=== PATIENT | female | born 1930 | race Caucasian/White ===

== ENCOUNTER 2016-09-04 09:18 | Inpatient (IN) ==
[2016-09-04 10:57] LABS: Apearance,Urine CLOUDY (Clear); Bacteria,Urine Few /HPF (Few); Bilirubin,Urine Negative (Negative); Blood, Urine Negative (Negative); Glucose,Urine (UA) Negative (Negative); Ketones,Urine Negative (Negative); Nitrite,Urine Negative (Negative); Protein,Urine 30 MG/DL; RBC,Urine 6 /HPF (0-4); Urine Color Yellow (Yellow); Urine Specific Gravity 1.015 (1.001-1.035); Urine Urobilinogen < 2.0 EU/DL (0.2-1.0); WBC,Urine 545 /HPF (0-6)
--- NOTE | 2016-09-04 11:08 | CT Report ---
History: Persistent left hip pain. Fall Date: 09/04/2016 Study: CT left hip without contrast Comparison exam: Left hip x-ray August 22, [address] sections were obtained through the left hip without IV contrast. Multiplanar reconstruction images are also evaluated. This CT exam was performed using one or more the following dose reduction techniques: Automated exposure control, adjustment of the MA and/or KV according to patient size, or use of iterative reconstruction technique. There is no fracture, dislocation, or focal destructive osseous abnormality. There is moderate osteophyte formation and joint space narrowing of the left hip. In the partially visualized pelvis, there is diverticulosis without findings of diverticulitis. Impression: No acute hip fracture. Osteoarthritis left hip. Diverticulosis PROCEDURE INTERPRETED AT [facility] DEPARTMENT OF RADIOLOGY Final Report Signed by: Dr. Teena Patrick
--- NOTE | 2016-09-04 11:16 | Emergency Department Note ---
Sam Delgadillo [place], am scribing for, and in the presence of, Kings Nowak MD 10:56. She Delgadillo Charles R, MD, personally performed the services described in this documentation, ascribed by Kathleen Vargas in my presence, and it is both accurate and complete . Arrival - Arrival Chief Complaint: Extremity Problem Stated Complaint: s/p fall with hip pain ED Nursing Triage Note: Patient reports frequent falls times five weeks. She reports falling last Wednesday and Wednesday and being evaluated in the ER. She reports falling this morning r/t left hip pain. She reports sharp, shooting, stabbing pain to her let hip. She denies hitting her head during fall. She denies chest pain, shortness of breath, or dizziness prior to the fall. Mode of Arrival: Stretcher Limitations: No Limitations Source: Patient Time Seen by Provider: 09/04/16 10:21 - History of Present Illness HPI Narrative: Pt is a 82 y/o white female presenting to the ED s/p fall that onset this morning. Pt states she also fell one week ago on Satuday and this is her second ER visit for the pain she is experiencing in her left hip. Pt denies hitting her head. There is ecchymosis present to left hip. She states Xray were benign the last time she was here. Pt admits to working in the yard and states she has been falling more than usual. Pt does have a walker but does not use it because it is too big for her home. She states she has numbness in her toes and can not bear weight on her left leg but denies fever, chills, nausea, vomiting, diarrhea , pedal edema, abdominal pain, and dysuria. Pt lives with her daughter. Her PCP is Dr. Escalante. She is currently taking Plavix. Her PMHx is consistent with CHF, TIA, HTN, diabetes, COPD, and renal sufficiency. Consistency: constant Severity: moderate Allergies/Adverse Reactions: Allergies Allergy/AdvReac Type Severity Reaction Status Date / Time codeine Allergy ANAPHYLAXIS Verified 08/22/16 15:36 Home Medications: Home Medications Medication Instructions Recorded Confirmed Type Clopidogrel [Plavix] 75 mg PO QAM 03/12/16 09/04/16 History Donepezil HCl [Donepezil HCl] 5 mg PO BEDTIME 08/23/16 09/04/16 History Gabapentin [Gabapentin] 400 mg PO BID 08/23/16 09/04/16 History Levothyroxine Sodium 88 mcg PO QAM 08/23/16 09/04/16 History [Levothyroxine Sodium] Potassium Chloride 10 meq PO DAILY 08/23/16 09/04/16 History Pravastatin Sodium [Pravastatin 20 mg PO BEDTIME 08/23/16 09/04/16 History Sodium] glipiZIDE [Glipizide] 5 mg PO BID 08/23/16 09/04/16 History traMADol TAB [Ultram] 50 mg PO Q12H PRN #20 tablet 08/23/16 09/04/16 Rx Cyclobenzaprine HCl 5 mg PO TID PRN 09/04/16 09/04/16 History Gabapentin [Gabapentin] 100 mg PO BID 09/04/16 09/04/16 History Review of System - Review of System 12 point system: reviewed and no additional remarkable complaints except as stated - Review of System Constitutional: Absent: chills, fever, weakness Eyes: Absent: vision change Head/Ears/Nose/Throat: Absent: nasal drainage Respiratory: Absent: cough, wheezing Cardiovascular: Absent: chest pain, dyspnea on exertion Gastrointestinal: Absent: abdominal pain, nausea, vomiting, diarrhea Genitourinary female: Absent: dysuria Musculoskeletal: Present: lower back pain, leg pain (left hip pain with ecchymosis s/p fall ). Absent: arm pain, back pain Skin: Absent: rash Neurological: Present: numbness (in toes of left foot ). Absent: headache, weakness, confusion, vertigo Psychiatric: Absent: anxiety Endocrine: Absent: fatigue Hematological/Lymphatic: Absent: easy bleeding Allergic/Immunologic: Absent: facial swelling Medical,Surgical,& Family Hx - Medical History Cardio: History of: CHF (year 2000), CAD, Hypertension, ID (year 2000), Pacemaker (reveal monitor), Cardiovascular Problems (carotid blockage) Neurology: History of: TIA (september) Endocrine: History of: Diabetes Mellitus (NIDDM), Dyslipidemia Rheumatology: History of;: Rheumatoid Arthritis Respiratory: History of: COPD, Pneumonia (in years 2013 and 2014) Renal: History of: Renal Problems (renal sufficiency in 2011) Gastrointestinal: History of: GI Problems (diarrhea) Musculoskeletal: History of: Musculoskeletal Problems (osteoarthritis) - Surgical History Cardiac Surgeries: Sugical HX of: Cardiac Catheterization (2000), Carotid Endarterectomy (1997) HEENT Surgeries: Surgical HX of: Carotid Endarterectomy (1997), Tonsilectomy & Adenoidectomy Abdominal Surgeries: Surgical HX of: Appendectomy (1967) Reproductive Surgeries: Surgical HX of;: Hysterectomy (1967) - Family History Family History: Reports;: Family Cancer (1 sibling from brain cancer), Family Heart Disease (6 siblings of heart attack), Family Hypertension ( father) - Social History Smoking Status: Former smoker Frequency of Alcohol Use: None Type of Drug Use: None Exam Vital Signs: Vital Signs Temperature 97.6 F 09/04/16 09:20 Pulse Rate 74 09/04/16 09:20 Respiratory Rate 16 09/04/16 09:20 Blood Pressure 189/81 09/04/16 09:20 O2 Sat by Pulse Oximetry 96 09/04/16 09:20 - General General appearance: alert, in no apparent distress - Head Head exam: Present: atraumatic, normocephalic, normal inspection - Eye Eye exam: Present: normal appearance, PERRL, EOMI - ENT ENT exam: Present: normal exam, normal oropharynx, mucous membranes moist, TM's normal bilaterally, normal external ear exam - Neck Neck exam: Present: normal inspection, full ROM, trachea midline. Absent: tenderness - Chest Chest inspection: Present: normal inspection, symmetric chest wall rise. Absent : tenderness - Respiratory Respiratory exam: Present: normal lung sounds bilaterally - Cardiovascular Cardiovascular exam: Present: regular rate, normal rhythm, normal heart sounds - Abdominal Exam Abdominal exam: Present: soft, normal bowel sounds. Absent: distention, tenderness - Extremities Exam Extremities exam: Present: full ROM, tenderness (left hip ), normal capillary refill. Absent: normal inspection, pedal edema, calf tenderness - Back Exam Back exam: Present: normal inspection, full ROM, tenderness (lower back ), other (pain over sciatic nerve left side ) - Neurological Exam Neurological exam: Present: alert, oriented X3, CN II-XII intact, normal gait, reflexes normal - Psychiatric Psychiatric exam: Present: normal affect, normal mood - Skin Skin exam: Present: warm, dry, intact, normal color, other (ecchymosis to left hip s/p fall last Wednesday). Absent: rash, diaphoresis Course - Consultations Consultation #1: Hospitalist will admit patient Time: 12:14 Results - Labs CBC & BMP: 09/04/16 10:44 Lab Results: I have reviewed the patients labs - Diagnostic Findings Procedure: Chest x-ray: report reviewed by me (COPD with chronic scarring; left loop recorder. ), CT: report reviewed by me (left hip; no acute fracture ), X- ray: report reviewed by me (lumbar spine; osteopenia. Degenerative disease. Grade 1 spondylolisthesis L2-L3) Disposition Clinical Impression: Back pain, Falls frequently, UTI (urinary tract infection), Contusion of left hip, Unsteady gait Case discussed with: patient Disposition: Still a Patient Condition: Stable Time of Disposition: 11:51
[2016-09-04] MEDS ORDERED: cefTRIAXone 1,000 MG in SODIUM CHLORIDE 0.9% 100 ML IV STA (11:20)
--- NOTE | 2016-09-04 11:21 | XRay Report ---
Portable chest Date: 09/04/2016 Clinical history: Shortness of breath Comparison: 04/24/2014 Technique: Portable AP sitting chest Findings: The heart is borderline in size with calcification in the wall of the tortuous aorta. Stable left loop recorder. Button artifact noted. Chronic scarring in the lungs with calcified granulomata/nodes. Osteopenia with degenerative changes. 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 Impression: COPD with chronic scarring. Left loop recorder. PROCEDURE INTERPRETED AT [facility] DEPARTMENT OF RADIOLOGY Final Report Signed by: Dr. Carin Edmonds
--- NOTE | 2016-09-04 11:22 | XRay Report ---
History: Lower back pain Date: 09/04/2016 Study: Lumbar spine AP and lateral 3 views Comparison exam: No previous There is mild dextroscoliosis of the lumbar spine centered at the L3 level. There is grade 1 retrolisthesis of L2 with respect to L3, likely chronic. There is moderate degenerative disc narrowing at L2-L3 and L3-L4. There is scattered mild to moderate lumbar spondylosis. There is moderate facet hypertrophy in the mid to lower lumbar spine. There is osteopenia. There is no focal lytic or blastic lesion. There is no aneurysm of the moderately calcified aorta. Impression: Osteopenia. Degenerative disease. Grade 1 spondylolisthesis L2-L3 PROCEDURE INTERPRETED AT [facility] DEPARTMENT OF RADIOLOGY Final Report Signed by: Dr. Teena Patrick
[2016-09-04] MEDS ORDERED: cefTRIAXone 1,000 MG VIAL ONE (11:29)
[2016-09-04 11:43] LABS: Basophils # 0.1 10*3/uL (0.0-0.2); Eosinophils # 0.2 10*3/uL (0.0-0.87); Eosinophils % 3.1 % (0.00-10.9); Hematocrit 39.5 VOL% (35.7-47.0); Immature Granulocytes % 0.2 %; Immature Granulocytes Absolute 0.01 #; Lymphocytes # 1.5 10*3/uL (1.4-4.0); Lymphocytes % 24.8 % (21.3-54.2); Mean Corpuscular HGB Conc 32.9 GM/DL (32-36); Mean Corpuscular Hemoglobin 29 PG (27-34); Mean Platelet Volume 9.7 FL (9.6-12.0); Monocytes # 0.6 10*3/uL (0.11-0.8); Monocytes % 9.3 % (1.7-12.7); Neutrophils # 3.8 10*3/uL (1.4-7.4); Neutrophils % 61.6 % (38.7-73.9); Platelet Count 167 T/CUMM (130-400); Red Blood Count 4.44 MC/CUMM (3.8-5.5); Red Cell Distribution Width 14.5 % (9.3-17.3); White Blood Count 6.1 T/CUMM (4-12)
[2016-09-04 12:12] LABS: Alanine Aminotransferase 9 U/L (13-56); Alkaline Phosphatase 77 U/L (45-117); Aspartate Amino Transferase 15 U/L (0-37); Bilirubin,Total < 0.39 MG/DL (0.2-1.0); Blood Urea Nitrogen 28 MG/DL (7-18); Calcium 8.4 MG/DL (8.5-10.1); Glucose 51 MG/DL (74-106); Potassium 4.2 MMOL/L (3.5-5.1); Sodium 143 MMOL/L (136-145); Total Protein 5.3 G/DL (6.4-8.3)
[2016-09-04] MEDS ORDERED: fentaNYL 100 MCG/2 ML VIAL IV STA (13:21)
[2016-09-04] MEDS ORDERED: fentaNYL 100 MCG/2 ML VIAL ONE (13:24)
--- NOTE | 2016-09-04 13:40 | Hospitalist History & Physical ---
Assessment and Plan (1) Non-insulin dependent type 2 diabetes mellitus Status: Chronic Assessment and plan: Blood glucose 51 at the time of admission; will start accuchecks with coverage. Will obtain HGA1C. Current Visit: No (2) Recurrent falls Status: Acute Assessment and plan: CT hip (-) for fracture.Patient reports pain upon minimal weight bearing. Will consult PT to evaluate; if no improvement may order MRI of left leg. The patient has had multiple falls recently; although she denies loss of consciouness or injury to her head; she takes Plavix; will obtain CT head for good measures. Current Visit: Yes (3) Urinary tract infection Status: Acute Assessment and plan: Continue empiric antibiotics and await urine culture results. Current Visit: Yes Qualifiers: Urinary tract infection type: site unspecified Hematuria presence: without hematuria Qualified Code(s): N39.0 - Urinary tract infection, site not specified History of Present Illness Chief complaint: Fall with left hip pain/UTI History of present illness: This is a very pleasant 85 year old female that presented to the ED at [facility] for evaluation of left hip pain secondary to a ground level fall on this morning. The patient has a rather impressive medical history significant for congestive heart failure, transient ischemic attack, diabetes mellitus, chronic obstructive pulmonary disease and renal insufficiency. The patient reports multiple falls in recent weeks including one that occurred on Wednesday in which see was evaluated for in the ED here. She denies loss of consciousness during the current and previous episodes. The patient was told that she did not have a fracture, given prescriptions, and discharged home; however the left hip pain failed to improve.In addition, the patient reported numbness to her left toes. She reports that the pain has become virtually impossible to bear which prompted her to present to the ED for evaluation. Labs were obtained at the time of arrival which reported hypoglycemia with a glucose level of 51, calcium of 8.4, ALT of 9, BUN of 28, and creatinine of 1.70. Radiograph of the lumbar spine suggests osteopenia, degenerative disease, and grade 1 [address]ondylolisthesis L2-L3. CT left hip negative for fracture. After discussion with both Dr. Nowak and Dr. Hernández, the patient will be admitted to the hospitalist service for continuation of care. Home Medications Medication Instructions Recorded Confirmed Type Clopidogrel [Plavix] 75 mg PO QAM 03/12/16 09/04/16 History Donepezil HCl [Donepezil HCl] 5 mg PO BEDTIME 08/23/16 09/04/16 History Gabapentin [Gabapentin] 400 mg PO BID 08/23/16 09/04/16 History Levothyroxine Sodium 88 mcg PO QAM 08/23/16 09/04/16 History [Levothyroxine Sodium] Potassium Chloride 10 meq PO DAILY 08/23/16 09/04/16 History Pravastatin Sodium [Pravastatin 20 mg PO BEDTIME 08/23/16 09/04/16 History Sodium] glipiZIDE [Glipizide] 5 mg PO BID 08/23/16 09/04/16 History traMADol TAB [Ultram] 50 mg PO Q12H PRN #20 tablet 08/23/16 09/04/16 Rx Cyclobenzaprine HCl 5 mg PO TID PRN 09/04/16 09/04/16 History Gabapentin [Gabapentin] 100 mg PO BID 09/04/16 09/04/16 History Allergies Allergy/AdvReac Type Severity Reaction Status Date / Time codeine Allergy ANAPHYLAXIS Verified 08/22/16 15:36 Medical,Surgical,& Family Hx - Medical History Cardio: History of: CHF (2000), CAD, Hypertension, [place] (2000), Pacemaker (reveal monitor), Cardiovascular Problems (carotid blockage) Neurology: History of: TIA (september) Endocrine: History of: Diabetes Mellitus (NIDDM), Dyslipidemia Rheumatology: History of;: Rheumatoid Arthritis Respiratory: History of: COPD, Pneumonia (in years 2013 and 2014) Renal: History of: Renal Problems (renal sufficiency in 2011) Gastrointestinal: History of: GI Problems (diarrhea) Musculoskeletal: History of: Musculoskeletal Problems (osteoarthritis) - Surgical History Cardiac Surgeries: Sugical HX of: Cardiac Catheterization (2000), Carotid Endarterectomy (1997) HEENT Surgeries: Surgical HX of: Carotid Endarterectomy (1997), Tonsilectomy & Adenoidectomy Abdominal Surgeries: Surgical HX of: Appendectomy (1967) Reproductive Surgeries: Surgical HX of;: Hysterectomy (1967) - Family History Family History: Reports;: Family Cancer (1 sibling from brain cancer), Family Heart Disease (6 siblings of heart attack), Family Hypertension ( father) - Social History Smoking Status: Former smoker Frequency of Alcohol Use: None Type of Drug Use: None 12 point system: reviewed and no additional remarkable complaints except as stated Exam - Constitutional General appearance: normal weight, mild distress - Head Head exam: Present: normocephalic, atraumatic - Eye Eye exam: Present: EOMI, conjunctival injection Pupils: Present: JAROD, normal accommodation. Absent: constricted - ENT ENT exam: Present: normal exam, normal external ear exam, normal oropharynx - Neck Neck exam: Present: normal inspection. Absent: lymphadenopathy, meningismus, tenderness, thyromegaly - Respiratory Respiratory exam: Present: clear to auscultation bilaterally. Absent: rales, rhonchi, stridor, wheezes - Cardiovascular Cardiovascular exam: Present: regular rate and rhythm. Absent: carotid bruit, diastolic murmur, gallop, JVD, rubs, tachycardia - GI/Abdominal GI/Abdominal exam: Present: normal bowel sounds, soft. Absent: firm, guarding - Extremities Exam Extremities exam: Present: other (left leg pain upon gentle manipulation; eccyhmosis) - Back Exam Back exam: Present: CVA tenderness (L), CVA tenderness (R) - Neurological Exam Neurological exam: Present: alert, oriented X3, CN II-XII intact - Psychiatric Psychiatric exam: Present: normal affect, normal mood - Skin Skin exam: Present: normal color, warm, dry Results - Labs CBC & BMP: 09/04/16 10:44 09/04/16 10:44 Lab Results: I have reviewed the past 24 hour labs Quality Measures - VTE Deep Vein Thrombosis/Pulmonary Embolism Present on Admission: No
--- NOTE | 2016-09-04 15:13 | CT Report ---
CT head/brain wo con Indication: Head injury status post fall Comparison: CT head 03/12/2016 Technique: CT of the brain was performed without administration of intravenous contrast. The CT examination was performed using one or more of the following dose reduction techniques: Automatic exposure control, adjustment of the mA and kV according to patient size, use of acute or iterative reconstruction techniques. Findings: There is no evidence of acute intracranial mass, hemorrhage, or infarction. Generalized cerebral atrophy is present. Areas of decreased attenuation within the periventricular white matter and cerebral white matter are present which could be compatible with microvascular ischemia. The basal cisterns are patent. No significant abnormality is demonstrated to involve the posterior fossa or cerebellum. Orbits and globes demonstrate no evidence of significant pathology. The paranasal sinuses are clear. No significant abnormality is demonstrated to involve the mastoid air cells. The calvarium and overlying soft tissues demonstrate no evidence of acute pathology. Impression: 1. No CT evidence of acute intracranial pathology. Generalized atrophy and findings compatible with microvascular ischemia are present. 09/04/2016 3:09 PM PROCEDURE INTERPRETED AT [facility] DEPARTMENT OF RADIOLOGY Final Report Signed by: Dr. Leon Smith
[2016-09-04] MEDS ORDERED: LEVOFLOXACIN INJ 500 MG in PREMIX 1 EACH IV ONE (16:00)
[2016-09-04] MEDS ORDERED: DEXTROSE 50% 25 GM/50 ML VIAL IV PRN (16:37)
[2016-09-04] MEDS ORDERED: GLUCAGON 1 MG VIAL IM PRN (16:37)
--- NOTE | 2016-09-04 16:48 | Magnetic Resonance Report ---
MR femur LT wo con Indication: Left leg pain. Comparison: CT of the left hip 09/04/2016. Technique: Using a 1.5 Veronica magnet, multisequence multiplanar MR imaging of the left femur was performed without administration of intravenous contrast. Findings: The large field of view utilized on the coronal inversion recovery sequence degrades anatomic detail of the femoral acetabular joints. Trace amount of fluid may be present bilaterally within the femoral acetabular joints. There is no evidence of bone marrow edema involving the femurs or visualized pelvis. No muscular edema is suggested within the left or right thigh. The adipose layer and dermal surface demonstrate no significant abnormalities. Impression: 1. No findings are present to suggest etiology of left leg pain. 09/04/2016 4:43 PM PROCEDURE INTERPRETED AT [facility] DEPARTMENT OF RADIOLOGY Final Report Signed by: Dr. Leon Smith
[2016-09-04] MEDS ORDERED: traMADol 50 MG TABLET PO PRN (20:33)
[2016-09-04] MEDS: CYCLOBENZAPRINE 10 MG TABLET PO PRN (21:09)
[2016-09-05] MEDS: CYCLOBENZAPRINE 10 MG TABLET PO PRN ×2 (01:50→08:20)
[2016-09-05] MEDS: ACETAMINOPHEN 500 MG TABLET PO SCH ×4 (03:48→21:07)
[2016-09-05] MEDS: oxyCODONE IR 5 MG TABLET PO PRN ×4 (03:48→21:07)
[2016-09-05 04:57] LABS: Basophils # 0.1 10*3/uL (0.0-0.2); Basophils % 0.8 % (0.0-0.8); Eosinophils # 0.3 10*3/uL (0.0-0.87); Eosinophils % 3.9 % (0.00-10.9); Hematocrit 37.8 VOL% (35.7-47.0); Hemoglobin 12.5 GM/DL (12.0-16.0); Immature Granulocytes % 0.4 %; Immature Granulocytes Absolute 0.03 #; Lymphocytes # 1.4 10*3/uL (1.4-4.0); Mean Corpuscular HGB Conc 33.1 GM/DL (32-36); Mean Corpuscular Hemoglobin 29 PG (27-34); Mean Corpuscular Volume 88.3 FL (87-102); Mean Platelet Volume 10.5 FL (9.6-12.0); Monocytes # 0.7 10*3/uL (0.11-0.8); Monocytes % 9.8 % (1.7-12.7); Neutrophils # 4.9 10*3/uL (1.4-7.4); Neutrophils % 66.1 % (38.7-73.9); Platelet Count 183 T/CUMM (130-400); Red Blood Count 4.28 MC/CUMM (3.8-5.5); Red Cell Distribution Width 14.5 % (9.3-17.3); White Blood Count 7.4 T/CUMM (4-12)
[2016-09-05 05:37] LABS: Albumin 2.8 G/DL (3.4-5.0); Bilirubin,Total 0.7 MG/DL (0.2-1.0); Calcium 8.4 MG/DL (8.5-10.1); Magnesium 1.6 MG/DL (1.8-2.4); Osmolality,Calculated 283.3 MOS/KG (273-304); Phosphorous 2.5 MG/DL (2.5-4.9); Potassium 4.4 MMOL/L (3.5-5.1); Total Protein 5.1 G/DL (6.4-8.3)
[2016-09-05] MEDS: INSULIN LISPRO 100 UNIT/ML SUBCUT SCH ×4 (08:19→22:29)
--- NOTE | 2016-09-05 11:49 | Hospitalist Progress Note ---
Assessment and Plan (1) Recurrent falls Status: Acute Assessment and plan: This is subjectively reported to me. Of note weakness and the. Patient does not have any bruises on her body at this time. Because of this complaint of the pain in the left hip and unsteady, I will consult PT and OT gait training Current Visit: Yes (2) Urinary tract infection Status: Acute Assessment and plan: Reported as 100,000 colony-forming units of gram-negative Road antibiogram is pending. Continue antibiotic Current Visit: Yes Qualifiers: Urinary tract infection type: site unspecified Hematuria presence: without hematuria Qualified Code(s): N39.0 - Urinary tract infection, site not specified (3) Unsteady gait Status: Acute Assessment and plan: Consult PT OT. MRI of the left hip is negative for any pathology. Objective recommendation for physical therapy will determine disposition. Current Visit: Yes Hospitalist: Subjective Interval history: Patient has been seen interviewed and examined and chart has been reviewed. Admitted yesterday to the hospital with what was timed urinary tract infection. I have reviewed the urine there is no suggestion of inflammation on the urine but culture of this urine is reporting greater than 100,000 colony-forming unit with gram-negative fang. She is also complaining of left hip pain which she has done so for multiple times coming to the emergency room. In the notes she claims that primary care physician gives her steroid injections in the area of the sciatic nerve. Wee ended up doing an MRI of the hip area with no pathology found in the area of concern. Today she still complains of this pain when asked to stand up by side of the bed. was going down to the ground as I was supporting her. Whether this is real or not it is not clear to me. She lives at home alone and she complains of having had multiple falls at home because of this. Patient will therefore be referred to occupational therapy and physical therapy while here and get case management involved for possibility of sending her to swing bed for more PT OT if needed. Did mention possibility of a nursing home facility and she does not want to go to nursing home facility. Exam - Constitutional Vitals: Period Temp Pulse Resp BP Sys/Julian Pulse Ox Last 24 Hr 97.9 F-98.7 F 76-98 18-20 140-198/74-104 93-96 General appearance: normal weight - Head Head exam: Present: normal inspection, normocephalic, atraumatic - Eye Eye exam: Present: EOMI, other (Anicteric sclera no conjunctival petechia) Pupils: Present: JAROD - ENT ENT exam: Present: normal exam, normal oropharynx - Neck Neck exam: Present: normal inspection, other (Supple neck no JVD no bruits midline trachea) - Respiratory Respiratory exam: Present: clear to auscultation bilaterally - Cardiovascular Cardiovascular exam: Present: regular rate and rhythm - GI/Abdominal GI/Abdominal exam: Present: normal bowel sounds, soft - Extremities Exam Extremities exam: Present: normal inspection, normal capillary refill, other ( When I examined directly left hip by abduction and adduction could not reproduce the pain at the left hip but complained that the pain was at the knee front but around the patella) - Back Exam Back exam: Present: other (Complains of left gluteal pain and then claims the pain is in the knee) - Neurological Exam Neurological exam: Present: alert, oriented X3, CN II-XII intact - Psychiatric Psychiatric exam: Present: anxious, other (Anxious looking slightly hard of hearing) - Skin Skin exam: Present: normal color, warm, dry Results - Labs CBC & BMP: 09/05/16 03:28 09/05/16 03:28 Lab Results: I have reviewed the past 24 hour labs Quality Measures - VTE Deep Vein Thrombosis/Pulmonary Embolism Present on Admission: No
[2016-09-05] MEDS: LEVOFLOXACIN INJ 250 MG in PREMIX 1 EACH IV SCH (16:23)
[2016-09-06 06:20] LABS: Basophils # 0.1 10*3/uL (0.0-0.2); Basophils % 0.9 % (0.0-0.8); Eosinophils # 0.4 10*3/uL (0.0-0.87); Eosinophils % 5.2 % (0.00-10.9); Hematocrit 39.7 VOL% (35.7-47.0); Hemoglobin 13.2 GM/DL (12.0-16.0); Immature Granulocytes % 0.3 %; Immature Granulocytes Absolute 0.02 #; Lymphocytes % 26.4 % (21.3-54.2); Mean Corpuscular HGB Conc 33.2 GM/DL (32-36); Mean Corpuscular Hemoglobin 29 PG (27-34); Mean Corpuscular Volume 86.1 FL (87-102); Mean Platelet Volume 10.1 FL (9.6-12.0); Monocytes # 0.6 10*3/uL (0.11-0.8); Monocytes % 8.1 % (1.7-12.7); Neutrophils # 4.4 10*3/uL (1.4-7.4); Neutrophils % 59.1 % (38.7-73.9); Platelet Count 208 T/CUMM (130-400); Red Blood Count 4.61 MC/CUMM (3.8-5.5); Red Cell Distribution Width 14.4 % (9.3-17.3); White Blood Count 7.4 T/CUMM (4-12)
[2016-09-06] MEDS: ACETAMINOPHEN 500 MG TABLET PO SCH ×3 (06:21→21:18)
[2016-09-06] MEDS: oxyCODONE IR 5 MG TABLET PO PRN ×3 (06:21→22:28)
[2016-09-06 06:53] LABS: Bilirubin,Total 0.7 MG/DL (0.2-1.0); Calcium 9.3 MG/DL (8.5-10.1); Magnesium 1.7 MG/DL (1.8-2.4); Osmolality,Calculated 280.5 MOS/KG (273-304); Potassium 4.5 MMOL/L (3.5-5.1); Total Protein 5.4 G/DL (6.4-8.3)
[2016-09-06] MEDS ORDERED: CYCLOBENZAPRINE 10 MG TABLET PO PRN (10:20)
--- NOTE | 2016-09-06 10:50 | Hospitalist Progress Note ---
Assessment and Plan (1) Recurrent falls Status: Acute Assessment and plan: This is subjectively reported to me. Of note weakness and the. Patient does not have any bruises on her body at this time. Because of this complaint of the pain in the left hip and unsteady, I will consult PT and OT gait training also obtain an MRI of the lumbar spine. Current Visit: Yes (2) Urinary tract infection Status: Acute Assessment and plan: Reported as 100,000 colony-forming units of gram-negative Road antibiogram is pending. Continue antibiotic. Current Visit: Yes Qualifiers: Urinary tract infection type: site unspecified Hematuria presence: without hematuria Qualified Code(s): N39.0 - Urinary tract infection, site not specified (3) Unsteady gait Status: Acute Assessment and plan: Consult PT OT. MRI of the left hip is negative for any pathology. Objective recommendation for physical therapy will determine disposition. Current Visit: Yes Hospitalist: Subjective Interval history: Patient has been seen interviewed and examined and chart has been reviewed. She says she feels a little better today no complaints of pain in the leg. She still cannot weight bear as comfortably as functional. Therefore still needs PT OT and possibly swing bed before she goes home. Refer to physical therapy and Occupational Therapy done. All medications have been reviewed and reconciled with the medication profile in the hospital. We will withhold cyclobenzaprine. Patient is taking tramadol which was also been used at home combination of the 2 can be disastrous in terms of drug interactions. Exam - Constitutional Vitals: Period Temp Pulse Resp BP Sys/Julian Pulse Ox Last 24 Hr 97.6 F-98.9 F 76-88 16-20 151-182/74-93 94-97 General appearance: normal weight - Head Head exam: Present: normal inspection, normocephalic, atraumatic - Eye Eye exam: Present: EOMI Pupils: Present: JAROD - ENT ENT exam: Present: normal exam - Neck Neck exam: Present: normal inspection - Respiratory Respiratory exam: Present: clear to auscultation bilaterally - Cardiovascular Cardiovascular exam: Present: irregular rhythm, other (Rate controlled) - GI/Abdominal GI/Abdominal exam: Present: normal bowel sounds, soft - Extremities Exam Extremities exam: Present: other (Limitation of movement at the left hip but much less pain. She is complaining of numbness on the lateral aspect of the leg. MRI of the hip was nondiagnostic. Should do a lumbosacral MRI.) - Back Exam Back exam: Present: other (Noted reproducing any pain at the lumbar spine palpation. Patient does have a long-standing history of radicular pain in the same dermatomes as L3-4. On the left side.) - Neurological Exam Neurological exam: Present: alert, oriented X3, CN II-XII intact - Psychiatric Psychiatric exam: Present: normal affect, normal mood - Skin Skin exam: Present: normal color, warm, dry Results - Labs CBC & BMP: 09/06/16 05:57 09/06/16 05:57 Lab Results: I have reviewed the past 24 hour labs Quality Measures - VTE Deep Vein Thrombosis/Pulmonary Embolism Present on Admission: No
[2016-09-06] MEDS: INSULIN LISPRO 100 UNIT/ML SUBCUT SCH ×3 (15:37→21:19)
[2016-09-06] MEDS: LEVOFLOXACIN INJ 250 MG in PREMIX 1 EACH IV SCH (16:16)
--- NOTE | 2016-09-06 17:25 | Event Note ---
called by nursing to evaluate pts hypertension. pts BP has been elevated since admission. this could have been due to pain but this is controlled. will try a low dose of norvasc to see if this helps and see if she tolerates. discussed w dr hendrix covering for dr thomas.
[2016-09-06] MEDS ORDERED: DONEPEZIL 5 MG TABLET PO SCH (21:00)
[2016-09-06] MEDS ORDERED: PRAVASTATIN 20 MG TABLET PO SCH (21:00)
[2016-09-06] MEDS: glipiZIDE 5 MG TABLET PO SCH (21:18)
[2016-09-06] MEDS: GABAPENTIN 100 MG CAPSULE PO SCH (21:18)
[2016-09-07] MEDS: oxyCODONE IR 5 MG TABLET PO PRN (04:35)
[2016-09-07] MEDS: ACETAMINOPHEN 500 MG TABLET PO SCH (06:30)
[2016-09-07] MEDS ORDERED: LEVOTHYROXINE 88 MCG TABLET PO SCH (09:00)
[2016-09-07] MEDS ORDERED: CLOPIDOGREL 75 MG TABLET PO SCH (09:00)
[2016-09-07] MEDS ORDERED: amLODIPine 5 MG TABLET PO SCH (09:00)
[2016-09-07] MEDS: INSULIN LISPRO 100 UNIT/ML SUBCUT SCH (09:34)
[2016-09-07] MEDS: GABAPENTIN 100 MG CAPSULE PO SCH (09:36)
[2016-09-07] MEDS: glipiZIDE 5 MG TABLET PO SCH (09:36)
--- NOTE | 2016-09-07 09:36 | Discharge Summary ---
<Hansel Hernández - Last Filed: 09/07/16 09:32> Diagnosis - Discharge Diagnosis (1) Recurrent falls Status: Acute (2) Urinary tract infection Status: Acute (3) Unsteady gait Status: Acute Discharge Plan - Discharge Data Disposition: Home Health Service Condition at Discharge: Stable Discharge Diet: heart healthy Activity: increase activity as tolerated Hygiene: no restrictions Weight Bearing at Discharge: weight bear as tolerated Driving: other (Not to drive) Contact your physician if you experience:: fever over 101, Nausea/Vomiting, Shortness of breath, pain uncontrolled by pain medications - Discharge Medications New amLODIPine [Norvasc] 5 mg PO DAILY #30 tablet Continue Clopidogrel [Plavix] 75 mg PO QAM Gabapentin 400 mg PO BID Pravastatin Sodium 20 mg PO BEDTIME glipiZIDE [Glipizide] 5 mg PO BID Donepezil HCl 5 mg PO BEDTIME traMADol TAB [Ultram] 50 mg PO Q12H PRN #20 tablet PRN Reason: Pain Gabapentin 100 mg PO BID Levothyroxine Sodium 88 mcg PO QAM Cyclobenzaprine HCl 5 mg PO TID PRN PRN Reason: PAIN/TIGHTNESS Discontinued Potassium Chloride 10 meq PO DAILY - Follow Up or Referral - Forms/Instructions Exam - Constitutional Vitals: Period Temp Pulse Resp BP Sys/Julian Pulse Ox Last 24 Hr 97.7 F-98.4 F 75-93 18-20 145-189/77-93 95-99 General appearance: normal weight - Head Head exam: Present: normocephalic - Eye Eye exam: Present: EOMI Pupils: Present: JAROD - ENT ENT exam: Present: normal exam - Neck Neck exam: Present: normal inspection - Respiratory Respiratory exam: Present: clear to auscultation bilaterally - Cardiovascular Cardiovascular exam: Present: regular rate and rhythm - GI/Abdominal GI/Abdominal exam: Present: normal bowel sounds, soft - Extremities Exam Extremities exam: Present: other (Date of movement at the the left hip. Patient does have discomfort in the left inguinal area. All radiographs to this point have been negative for structural abnormalities. Patient may need a full orthopedic examination and follow-up is with physician. May even be referred to an occupational health expert.) - Back Exam Back exam: Present: normal inspection - Neurological Exam Neurological exam: Present: alert, oriented X3, CN II-XII intact - Psychiatric Psychiatric exam: Present: normal affect, normal mood - Skin Skin exam: Present: normal color, warm, dry Discharge Results Procedures and tests throughout hospitalization: Pending Orders 09/04/16 10:55 Thyroid Function Skandia, S Stat 09/07/16 10:54 MR lumbar spine wo con Routine Labs on day of discharge: Labs from last 24 hours 09/07/16 09/06/16 09/06/16 07:16 21:01 16:30 POC Glucose 75 127 H 122 H 09/06/16 11:35 POC Glucose 139 H DS: Provider Date of admission: 09/04/16 12:20 Primary care physician: . No PCP Attending physician on admission: Hansel Hernández MD Consults: 09/04/16 15:17 Consult to Dietitian [CONS] Routine Reason for Dietitian: Other 09/05/16 07:53 Consult to Physical Therapy [CONS] Routine Reason for Physical Therapy: Evaluate and Treat 09/06/16 07:45 Consult to Occupational Therapy [CONS] Routine Reason for Occupational Therapy: Evaluate and Treat 09/06/16 07:46 Consult to Case Mgmt/Social Srvs [CONS] Routine Reason for Case Mgmt/Social Srvs: Discharge Planning 09/07/16 09:22 Consult to Case Mgmt/Social Srvs [CONS] Routine Reason for Case Mgmt/Social Srvs: Home Health Consult Comment: with physical therapy 09/07/16 09:23 Consult to Physical Therapy [CONS] Routine Reason for Physical Therapy: Other Consult Comment: bring walker 09/07/16 09:24 Consult to Case Mgmt/Social Srvs [CONS] Routine Reason for Case Mgmt/Social Srvs: Equipment Consult Comment: bedside commode Discharging clinician: Hansel Hernández MD <Gia Ewing - Last Filed: 09/07/16 10:12> Hospital Course - Hospital Course Hospital Course: Ms. Villasenor is an 85 y/o with history of CHF, TIA, HTN, COPD, Renal Insifficiency and Diabetes Mellitus, that was admitted 09/04/2016 after presenting to the ER with left hip pain after falling several times at home. She was admiitted to inpatient to the Hospitalist service for Back Pain, UTI, contusion of left hip Unsteady gait and frequent falls. She has had negative Radiographic exams, as well as , MRI. She has been treated for her UTI that grew E Coli. She has been evaluated per PT/OT for possible swing bed/Snf placement. Ms. Villasenor is not interested in prison placement. She is being discharged home with home health She is being discharged home with PT/OT evaluation. She is to get an appropriate walker for her to use at home. Amolodipne has been added to her daily medication for better HTN control. Her potassium supplement was discontinued. She needs to follow up with her primary physican 1-2 weeks after discharge.
[2016-09-07 10:00] VITALS: BP 163/79
== END 2016-09-07 12:30 | disposition home health service (06) | DRG 690 ==
LOC: EDUNIT# → N.ED 09:18 → N.EDINP 12:20 → N.5E 12:43
PROVIDERS: ADMIT Internal Medicine Infectious Disease; ATTEND Internal Medicine Infectious Disease

== ENCOUNTER 2017-11-30 09:00 | Inpatient (IN) ==
[2017-11-30 10:34] LABS: Basophils # 0.1 10*3/uL (0.0-0.2); Basophils % 1.4 % (0.0-0.8); Eosinophils # 0.5 10*3/uL (0.0-0.87); Eosinophils % 7.1 % (0.00-10.9); Hematocrit 40.4 VOL% (35.7-47.0); Immature Granulocytes % 0.3 %; Immature Granulocytes Absolute 0.02 #; Lymphocytes # 1.5 10*3/uL (1.4-4.0); Lymphocytes % 22.6 % (21.3-54.2); Mean Corpuscular HGB Conc 32.2 GM/DL (32-36); Mean Corpuscular Hemoglobin 30 PG (27-34); Mean Corpuscular Volume 92.4 FL (87-102); Mean Platelet Volume 10.1 FL (9.6-12.0); Monocytes # 0.7 10*3/uL (0.11-0.8); Monocytes % 10.2 % (1.7-12.7); Neutrophils # 3.9 10*3/uL (1.4-7.4); Neutrophils % 58.4 % (38.7-73.9); Platelet Count 214 T/CUMM (130-400); Red Blood Count 4.37 MC/CUMM (3.8-5.5); Red Cell Distribution Width 14.1 % (9.3-17.3); White Blood Count 6.6 T/CUMM (4-12)
[2017-11-30 10:41] LABS: Apearance,Urine CLEAR (Clear); Bilirubin,Urine Negative (Negative); Blood, Urine Negative (Negative); Glucose,Urine (UA) Negative (Negative); Ketones,Urine Negative (Negative); Mucus,Urine Occasional /LPF (Occasional); Nitrite,Urine Negative (Negative); Protein,Urine Negative; RBC,Urine 1 /HPF (0-4); Squamous Epithelial Cell,Urine Occasional /HPF (0-10); Urine Color Yellow (Yellow); Urine Specific Gravity 1.005 (1.001-1.035); Urine Urobilinogen < 2.0 EU/DL (0.2-1.0); WBC,Urine 1 /HPF (0-6)
[2017-11-30 11:00] LABS: Alanine Aminotransferase 15 U/L (13-56); Albumin 3.3 G/DL (3.4-5.0); Alkaline Phosphatase 111 U/L (45-117); Aspartate Amino Transferase 15 U/L (0-37); Blood Urea Nitrogen 28 MG/DL (7-18); Calcium 9.1 MG/DL (8.5-10.1); Glucose 101 MG/DL (74-106); Osmolality,Calculated 286.3 MOS/KG (273-304); Potassium 4.1 MMOL/L (3.5-5.1); Sodium 141 MMOL/L (136-145); Total Protein 6.5 G/DL (6.4-8.3)
[2017-11-30] MEDS ORDERED: LABETALOL 20 MG/4 ML SYRINGE IV PRN (15:11)
[2017-11-30] MEDS ORDERED: GLUCAGON 1 MG VIAL IM PRN (15:11)
[2017-11-30] MEDS ORDERED: DEXTROSE 50% 25 GM/50 ML VIAL IV PRN (15:11)
[2017-11-30] MEDS ORDERED: ONDANSETRON 4 MG/2 ML VIAL IV PRN (15:11)
[2017-11-30] MEDS ORDERED: DOCUSATE SODIUM 100 MG CAPSULE PO PRN (15:11)
[2017-11-30] MEDS ORDERED: LACTULOSE 20 GM/30 ML UDCUP PO PRN (15:11)
[2017-11-30] MEDS ORDERED: ACETAMINOPHEN 325 MG TABLET PO PRN (15:11)
[2017-11-30] MEDS: SODIUM CHLORIDE 0.9% 1,000 ML IV SCH (16:22)
[2017-11-30 16:46] LABS: Barbiturates Screen,Urine Negative (Negative); Benzodiazepines Screen,Urine Negative (Negative); Cannabinoid Screen,Urine Negative (Negative); Opiate Screen,Urine Negative (Negative); Phencyclidine Screen,Urine Negative (Negative)
[2017-11-30] MEDS: INSULIN LISPRO 100 UNIT/ML SUBCUT SCH ×2 (16:46→20:30)
[2017-11-30] MEDS: CLOPIDOGREL 75 MG TABLET PO SCH (17:02)
[2017-11-30] MEDS: ASPIRIN 325 MG TABLET PO SCH (17:02)
[2017-11-30] MEDS ORDERED: MAGNESIUM SULF RIDER 4 GM in PREMIX 1 EACH IV PRN (19:46)
[2017-11-30] MEDS ORDERED: MAGNESIUM SULF RIDER 2 GM in PREMIX 1 EACH IV PRN (19:46)
[2017-11-30] MEDS: ATORVASTATIN 40 MG TABLET PO SCH (20:26)
[2017-12-01] MEDS: SODIUM CHLORIDE 0.9% 1,000 ML IV SCH ×3 (00:30→09:32)
[2017-12-01 05:16] LABS: Basophils # 0.1 10*3/uL (0.0-0.2); Basophils % 1.5 % (0.0-0.8); Eosinophils # 0.5 10*3/uL (0.0-0.87); Hematocrit 34.9 VOL% (35.7-47.0); Hemoglobin 11.6 GM/DL (12.0-16.0); Immature Granulocytes % 0.4 %; Immature Granulocytes Absolute 0.02 #; Lymphocytes # 1.7 10*3/uL (1.4-4.0); Mean Corpuscular HGB Conc 33.2 GM/DL (32-36); Mean Corpuscular Hemoglobin 30 PG (27-34); Mean Corpuscular Volume 89.9 FL (87-102); Mean Platelet Volume 10.5 FL (9.6-12.0); Monocytes # 0.5 10*3/uL (0.11-0.8); Monocytes % 10.2 % (1.7-12.7); Neutrophils % 41.9 % (38.7-73.9); Platelet Count 200 T/CUMM (130-400); Red Blood Count 3.88 MC/CUMM (3.8-5.5); Red Cell Distribution Width 14.1 % (9.3-17.3); White Blood Count 4.8 T/CUMM (4-12)
[2017-12-01 05:42] LABS: Band Neutrophils 2 % (0-10); Eosinophils 8 % (0-10); Hypochromasia 1+; Lymphocytes 36 % (20-55); Platelet Estimate Adequate; Segmented Neutrophils 45 % (50-85); Total Cells Counted 100
[2017-12-01 06:08] LABS: Calcium 8.3 MG/DL (8.5-10.1); Osmolality,Calculated 291.7 MOS/KG (273-304); Potassium 4.1 MMOL/L (3.5-5.1); Risk Ratio 2.93; Thyroid Stimulating Hormone 0.579 uIU/ml (0.358-3.74); VLDL CHOLESTEROL 21.6 MG/DL
[2017-12-01] MEDS: INSULIN LISPRO 100 UNIT/ML SUBCUT SCH ×4 (07:53→20:59)
[2017-12-01] MEDS ORDERED: cefTRIAXone 1,000 MG in SYRINGE 1 EACH IV SCH (09:00)
[2017-12-01] MEDS: ASPIRIN 325 MG TABLET PO SCH (09:47)
[2017-12-01] MEDS: CLOPIDOGREL 75 MG TABLET PO SCH (09:48)
[2017-12-01] MEDS: PANTOPRAZOLE 40 MG TABLET PO SCH (09:48)
[2017-12-01] MEDS: ATORVASTATIN 40 MG TABLET PO SCH (20:59)
[2017-12-02] MEDS: SODIUM CHLORIDE 0.9% 1,000 ML IV SCH (02:12)
[2017-12-02 04:42] LABS: Basophils # 0.1 10*3/uL (0.0-0.2); Basophils % 1.2 % (0.0-0.8); Eosinophils # 0.6 10*3/uL (0.0-0.87); Eosinophils % 9.8 % (0.00-10.9); Hematocrit 36.4 VOL% (35.7-47.0); Hemoglobin 12.2 GM/DL (12.0-16.0); Immature Granulocytes % 0.2 %; Immature Granulocytes Absolute 0.01 #; Lymphocytes # 1.8 10*3/uL (1.4-4.0); Lymphocytes % 30.3 % (21.3-54.2); Mean Corpuscular HGB Conc 33.5 GM/DL (32-36); Mean Corpuscular Hemoglobin 30 PG (27-34); Mean Corpuscular Volume 88.3 FL (87-102); Mean Platelet Volume 10.6 FL (9.6-12.0); Monocytes # 0.6 10*3/uL (0.11-0.8); Neutrophils # 2.9 10*3/uL (1.4-7.4); Neutrophils % 48.5 % (38.7-73.9); Platelet Count 205 T/CUMM (130-400); Red Blood Count 4.12 MC/CUMM (3.8-5.5); White Blood Count 5.9 T/CUMM (4-12)
[2017-12-02 05:09] LABS: Calcium 8.9 MG/DL (8.5-10.1); Osmolality,Calculated 289.7 MOS/KG (273-304); Potassium 3.7 MMOL/L (3.5-5.1)
[2017-12-02] MEDS ORDERED: LEVOTHYROXINE 88 MCG TABLET PO SCH (06:30)
[2017-12-02 07:49] VITALS: BP 169/94
[2017-12-02] MEDS: INSULIN LISPRO 100 UNIT/ML SUBCUT SCH (08:26)
[2017-12-02] MEDS: CLOPIDOGREL 75 MG TABLET PO SCH (08:28)
[2017-12-02] MEDS: ASPIRIN 325 MG TABLET PO SCH (08:28)
[2017-12-02] MEDS: PANTOPRAZOLE 40 MG TABLET PO SCH (08:28)
== END 2017-12-02 11:24 | disposition home or self-care (01) | DRG 69 ==
LOC: EDUNIT# → EDBD → N.ED 09:00 → N.EDINP 12:33 → N.2E 14:11
PROVIDERS: ADMIT Internal Medicine; ATTEND Internal Medicine

== ENCOUNTER 2018-10-17 15:37 | Inpatient (IN) ==
[2018-10-17] MEDS ORDERED: SODIUM CHLORIDE 0.9% 500 ML IV STA ×2 (16:10→17:16)
[2018-10-17 16:20] LABS: Basophils # 0.1 10*3/uL (0.0-0.2); Basophils % 1.1 % (0.0-0.8); Eosinophils # 0.3 10*3/uL (0.0-0.87); Eosinophils % 3.9 % (0.00-10.9); Hematocrit 38.8 VOL% (35.7-47.0); Hemoglobin 12.1 GM/DL (12.0-16.0); Immature Granulocytes % 0.5 %; Immature Granulocytes Absolute 0.03 #; Lymphocytes # 2.1 10*3/uL (1.4-4.0); Lymphocytes % 31.8 % (21.3-54.2); Mean Corpuscular HGB Conc 31.2 GM/DL (32-36); Mean Corpuscular Volume 97.5 FL (87-102); Mean Platelet Volume 9.9 FL (9.6-12.0); Monocytes % 10.1 % (1.7-12.7); Neutrophils % 52.6 % (38.7-73.9); Platelet Count 207 T/CUMM (130-400); Red Blood Count 3.98 MC/CUMM (3.8-5.5); Red Cell Distribution Width 13.9 % (9.3-17.3); White Blood Count 6.6 T/CUMM (4-12)
[2018-10-17 16:29] LABS: INR 0.9; PT Patient Result 10.2 SECS
[2018-10-17 16:43] LABS: Alanine Aminotransferase 15 U/L (13-56); Albumin 3.2 G/DL (3.4-5.0); Alkaline Phosphatase 104 U/L (45-117); Aspartate Amino Transferase 15 U/L (0-37); Blood Urea Nitrogen 35 MG/DL (7-18); Calcium 8.9 MG/DL (8.5-10.1); Glucose 100 MG/DL (74-106); Osmolality,Calculated 290.1 MOS/KG (273-304); Total Protein 6.3 G/DL (6.4-8.3); Troponin I < 0.015 NG/ML (0.00-0.045)
[2018-10-17 17:51] LABS: Apearance,Urine CLEAR (Clear); Bilirubin,Urine Negative (Negative); Blood, Urine Negative (Negative); Glucose,Urine (UA) Negative (Negative); Hyaline Casts,Urine 22 /LPF (0-3); Ketones,Urine Negative (Negative); Mucus,Urine Occasional /LPF (Occasional); Nitrite,Urine Negative (Negative); Protein,Urine 30 MG/DL; Squamous Epithelial Cell,Urine Occasional /HPF (0-10); Urine Color Yellow (Yellow); Urine Specific Gravity 1.018 (1.001-1.035); Urine Urobilinogen < 2.0 EU/DL (0.2-1.0)
[2018-10-17] MEDS ORDERED: hydrALAZINE 20 MG/1 ML VIAL IV STA (19:36)
[2018-10-18] MEDS ORDERED: traMADol 50 MG TABLET PO PRN (00:19)
[2018-10-18] MEDS ORDERED: GLUCAGON 1 MG VIAL IM PRN (00:19)
[2018-10-18] MEDS ORDERED: ONDANSETRON 4 MG/2 ML VIAL IV PRN (00:19)
[2018-10-18] MEDS ORDERED: DEXTROSE 50% 25 GM/50 ML VIAL IV PRN (00:19)
[2018-10-18] MEDS: hydrALAZINE 20 MG/1 ML VIAL IV PRN (00:46)
[2018-10-18] MEDS: SODIUM CHLORIDE 0.45% 1,000 ML IV SCH ×2 (01:05→14:46)
[2018-10-18] MEDS: ATORVASTATIN 40 MG TABLET PO SCH ×2 (01:34→21:55)
[2018-10-18] MEDS: DONEPEZIL 10 MG TABLET PO SCH ×2 (01:34→21:55)
[2018-10-18] MEDS: GABAPENTIN 300 MG CAPSULE PO SCH ×4 (01:34→21:55)
[2018-10-18] MEDS: INSULIN REGULAR 100 UNIT/ML SUBCUT SCH ×5 (01:35→21:57)
[2018-10-18] MEDS: ENOXAPARIN 30 MG/0.3 ML SYRINGE SUBCUT SCH (01:35)
[2018-10-18 02:22] LABS: Troponin I < 0.015 NG/ML (0.00-0.045)
[2018-10-18 03:42] LABS: Basophils # 0.1 10*3/uL (0.0-0.2); Eosinophils # 0.3 10*3/uL (0.0-0.87); Eosinophils % 4.6 % (0.00-10.9); Hematocrit 38.7 VOL% (35.7-47.0); Hemoglobin 12.1 GM/DL (12.0-16.0); Immature Granulocytes % 0.1 %; Immature Granulocytes Absolute 0.01 #; Lymphocytes # 1.9 10*3/uL (1.4-4.0); Lymphocytes % 28.6 % (21.3-54.2); Mean Corpuscular HGB Conc 31.3 GM/DL (32-36); Mean Corpuscular Volume 95.8 FL (87-102); Mean Platelet Volume 9.9 FL (9.6-12.0); Monocytes % 7.9 % (1.7-12.7); Neutrophils % 57.8 % (38.7-73.9); Platelet Count 206 T/CUMM (130-400); Red Blood Count 4.04 MC/CUMM (3.8-5.5); Red Cell Distribution Width 13.7 % (9.3-17.3); White Blood Count 6.7 T/CUMM (4-12)
[2018-10-18 04:04] LABS: Alanine Aminotransferase 15 U/L (13-56); Alkaline Phosphatase 100 U/L (45-117); Aspartate Amino Transferase 13 U/L (0-37); Blood Urea Nitrogen 29 MG/DL (7-18); Calcium 8.6 MG/DL (8.5-10.1); Glucose 170 MG/DL (74-106); HDL Cholesterol 66 MG/DL (40-60); Risk Ratio 2.58; Total Protein 6.1 G/DL (6.4-8.3); Triglycerides 99 MG/DL (2-150); Troponin I < 0.015 NG/ML (0.00-0.045); VLDL CHOLESTEROL 19.8 MG/DL
[2018-10-18] MEDS: LEVOTHYROXINE 88 MCG TABLET PO SCH (05:45)
[2018-10-18] MEDS: amLODIPine 5 MG TABLET PO SCH (09:56)
[2018-10-18] MEDS: PANTOPRAZOLE 40 MG TABLET PO SCH (09:56)
[2018-10-18] MEDS: LACTULOSE 20 GM/30 ML UDCUP PO SCH ×2 (09:56→12:08)
[2018-10-18] MEDS: MULTIVITAMIN (OCUVITE) TABLET PO SCH (09:56)
[2018-10-18] MEDS: CLOPIDOGREL 75 MG TABLET PO SCH (09:56)
[2018-10-19] MEDS: ENOXAPARIN 30 MG/0.3 ML SYRINGE SUBCUT SCH (01:10)
[2018-10-19] MEDS: hydrALAZINE 20 MG/1 ML VIAL IV PRN (01:18)
[2018-10-19] MEDS: LEVOTHYROXINE 88 MCG TABLET PO SCH (06:20)
[2018-10-19] MEDS: SODIUM CHLORIDE 0.45% 1,000 ML IV SCH (06:20)
[2018-10-19 08:49] LABS: Basophils # 0.1 10*3/uL (0.0-0.2); Eosinophils # 0.3 10*3/uL (0.0-0.87); Eosinophils % 3.9 % (0.00-10.9); Hematocrit 42.2 VOL% (35.7-47.0); Hemoglobin 13.3 GM/DL (12.0-16.0); Immature Granulocytes % 0.3 %; Immature Granulocytes Absolute 0.02 #; Lymphocytes # 2.1 10*3/uL (1.4-4.0); Lymphocytes % 28.6 % (21.3-54.2); Mean Corpuscular HGB Conc 31.5 GM/DL (32-36); Mean Corpuscular Volume 94.8 FL (87-102); Mean Platelet Volume 9.2 FL (9.6-12.0); Monocytes % 8.1 % (1.7-12.7); Neutrophils % 58.1 % (38.7-73.9); Platelet Count 220 T/CUMM (130-400); Red Blood Count 4.45 MC/CUMM (3.8-5.5); Red Cell Distribution Width 13.5 % (9.3-17.3); White Blood Count 7.2 T/CUMM (4-12)
[2018-10-19 09:15] LABS: Osmolality,Calculated 287.1 MOS/KG (273-304)
[2018-10-19] MEDS ORDERED: MAGNESIUM SULF RIDER 4 GM in PREMIX 1 EACH IV PRN (09:46)
[2018-10-19] MEDS ORDERED: MAGNESIUM SULF RIDER 2 GM in PREMIX 1 EACH IV PRN (09:46)
[2018-10-19] MEDS: LACTULOSE 20 GM/30 ML UDCUP PO SCH (10:43)
[2018-10-19] MEDS: GABAPENTIN 100 MG CAPSULE PO SCH ×2 (10:44→15:37)
[2018-10-19] MEDS: MULTIVITAMIN (OCUVITE) TABLET PO SCH (10:44)
[2018-10-19] MEDS: amLODIPine 5 MG TABLET PO SCH (10:44)
[2018-10-19] MEDS: CLOPIDOGREL 75 MG TABLET PO SCH (10:44)
[2018-10-19] MEDS: PANTOPRAZOLE 40 MG TABLET PO SCH (10:44)
[2018-10-19] MEDS: INSULIN REGULAR 100 UNIT/ML SUBCUT SCH ×2 (10:45→12:50)
[2018-10-19] MEDS: GABAPENTIN 300 MG CAPSULE PO SCH (13:07)
[2018-10-19 16:07] VITALS: BP 161/55
== END 2018-10-19 16:50 | disposition home or self-care (01) | DRG 683 ==
LOC: EDUNIT# → N.ED 15:37 → SUATTDRO 20:47 → N.EDINP 20:47 → N.TELES 10-18 00:44
PROVIDERS: ADMIT Internal Medicine; ATTEND Internal Medicine